=== PATIENT | female | born 1975 | race Caucasian/White ===

== ENCOUNTER → 2025-02-02 | Outpatient (CLI) | payer MEDICARE, MEDICAID, SELFPAY ==
--- NOTE | 2025-02-02 13:10 | XR_ITS ---
Examination: PA lateral chest 2 views Technique: Upright PA lateral chest 2 views Date and time: Shortness of breath one week Findings: Normal heart size Lungs are clear. The osseous structures are intact Impression: No active disease
== END | disposition home or self-care (01) ==
PROVIDERS: PCP Nurse Practitioner Family; Referring Provider Nurse Practitioner Family; Visit Provider Nurse Practitioner Family
DX: F17.210 Nicotine dependence, cigarettes, uncomplicated (principal); R05.9 Cough, unspecified; R06.09 Other forms of dyspnea
CPT/HCPCS: 71046

== ENCOUNTER → 2025-06-15 | Outpatient (CLI) | payer MEDICARE, MEDICAID, SELFPAY ==
--- NOTE | 2025-06-15 10:15 | XR_ITS ---
Examination: Screening digital mammography, bilateral Computer aided detection 3-D breast Tomosynthesis, bilateral Date and time of exam: June 15, 2025 at 1027 hours Compared to mammograms dating to June 12, 2018 Indication: Screening Technique: Nonmagnified MLO, CC views of the breasts to been obtained, reconstructed from 3-D Tomosynthesis images. R2 computer aided detection program utilized for evaluation of suspicious masses and/or abnormal calcifications. 3-D Tomosynthesis images obtained. Findings: The breasts are heterogeneously dense, which may obscure small masses Breast biopsy markers upper outer right and left breast The breast architecture is nodular although discrete suspicious mass is not depicted Stable appearing calcifications Impression: BI-RADS Category 0: Incomplete: Need additional imaging evaluation Recommend repeat bilateral breast sonography follow-up given the nodular heterogeneous breast architecture and the patient's family history of breast cancer.
== END | disposition home or self-care (01) ==
LOC: CDIM 10:17
PROVIDERS: PCP Nurse Practitioner Family; Referring Provider Obstetrics & Gynecology; Visit Provider Obstetrics & Gynecology
DX: Z12.31 Encounter for screening mammogram for malignant neoplasm of breast (principal); R92.333 Mammographic heterogeneous density, bilateral breasts; Z80.3 Family history of malignant neoplasm of breast
CPT/HCPCS: 77063; 77067

== ENCOUNTER → 2025-08-17 | Outpatient (CLI) | payer MEDICARE, MEDICAID, SELFPAY ==
--- NOTE | 2025-08-17 13:00 | XR_ITS ---
Examination: Breast ultrasound complete, bilateral Date and time of exam: July 28, 2025 1309 hours INDICATIONS: Mammogram June 15, 2025, nodular heterogeneous breast architecture, family history breast cancer Technique: Real-time grayscale ultrasonographic imaging bilateral breasts, including all 4 quadrants as well as nipple retroareolar and axillary regions. Findings: Sonographic images right breast Multiple benign cysts, the largest in the 10:00 position 8 x 4 mm, no solid nodules Sonographic images left breast Multiple benign cysts, the largest in the 11:00 position 6 x 4 mm, no solid nodules IMPRESSION: BI-RADS Category 2: Benign findings
== END | disposition home or self-care (01) ==
LOC: CDIM 12:35
PROVIDERS: PCP Nurse Practitioner Family; Referring Provider Obstetrics & Gynecology; Visit Provider Obstetrics & Gynecology
DX: R92.333 Mammographic heterogeneous density, bilateral breasts (principal)
CPT/HCPCS: 76641

== ENCOUNTER → 2025-11-01 | Outpatient (CLI) | payer MEDICARE, MEDICAID, SELFPAY ==
[2025-11-01 10:28] LABS: HCG Qualitative,Urine Negative
--- NOTE | 2025-11-01 10:30 | XR_ITS ---
Examination: CT lung low dose screening, without contrast. 2-D sagittal reconstructions. 2-D coronal reconstructions. 3-D reconstructions. Date and time of exam: November 01, 2025, 1039 hours INDICATIONS: Nicotine dependence, smoking history 30 years CTDI: vol (mGy): 7.12 DLP: (mGycm): 258 Technique: Multiple 1.25 mm axial sections of the lung low dose screening have been obtained. 2-D sagittal and coronal reconstructions have been obtained. 3-D reconstructions have been obtained. Low dose protocols were performed. One or more of the following dose reduction techniques were used; automated exposure control, adjustment of the mA and/or KV according to patient size, use of iterative reconstruction technique. Findings: No thoracic aortic aneurysmal dilatation Pulmonary artery segments are not enlarged. Heavy calcification left anterior descending left circumflex coronary arteries No paratracheal tracheobronchial or bronchopulmonary adenopathy 3 mm pulmonary nodule right upper lobe image 78 4 mm pulmonary nodule lingular segment image 235 No pneumonia or pulmonary edema No visualized liver or splenic lesion Absent gallbladder 2 mm right 3 mm left renal calculi The common hepatic duct appears enlarged, measuring up to 17 mm IMPRESSION: Noncalcified pulmonary nodules as above, recommend 6-month follow-up CT chest without contrast Bilateral nonobstructing renal calculi Recommend about a biliary sonography to exclude extrahepatic biliary tract dilatation
== END | disposition home or self-care (01) ==
PROVIDERS: PCP Nurse Practitioner Family; Referring Provider Nurse Practitioner Family; Visit Provider Nurse Practitioner Family
DX: R91.8 Other nonspecific abnormal finding of lung field (principal); N20.0 Calculus of kidney; Z32.00 Encounter for pregnancy test, result unknown
CPT/HCPCS: 71271; 81025

== ENCOUNTER → 2025-11-22 | Outpatient (CLI) | payer MEDICARE, MEDICAID, SELFPAY ==
--- NOTE | 2025-11-22 11:30 | XR_ITS ---
Examination: Abdomen sonogram, complete Date and time of exam: November 22, 2025, 1137 hours INDICATIONS: Nicotine dependence, smoking history 30 years. Technique: Multiple real-time grayscale transabdominal sonographic images of the abdomen have been obtained. Findings: Absent gallbladder Common bile duct 0.6 cm no stones Pancreatic head 2.0 cm Aorta not enlarged. Liver 12.1 cm fatty infiltration 19 mm liver cyst right lobe Normal hepatopetal portal venous flow Patent IVC Right kidney 10.9 cm renal cortex 1.5 cm Left kidney 10.4 cm renal cortex 1.7 cm Lower pole left renal cyst 32 mm Mid pole left renal calculus 4 mm Spleen 8.0 cm IMPRESSION: Absent gallbladder Normal common bile duct 0.6 cm Fatty infiltration throughout the liver Midpole 4 mm nonobstructing left renal calculus No hydronephrosis
== END | disposition home or self-care (01) ==
PROVIDERS: PCP Physician Assistant; Referring Provider Nurse Practitioner Family; Visit Provider Nurse Practitioner Family
DX: K76.0 Fatty (change of) liver, not elsewhere classified (principal); N20.0 Calculus of kidney; Z90.49 Acquired absence of other specified parts of digestive tract
CPT/HCPCS: 76700